=== PATIENT | male | born 1935 | race Caucasian/White ===

== ENCOUNTER 2019-06-15 13:51 | Emergency (ER) | payer MEDICARE ==
[~2019-06-15] VITALS: Ht 177.8 cm; Wt 88.4 kg
[2019-06-15 14:55] LABS: BASO # 0.1 x10^3/uL (0.0-0.2); BASO % 1 % (0-3); EOS # 0.1 x10^3/uL (0.0-0.7); EOS % 1 % (0-3); HEMATOCRIT 44.6 % (39.0-53.0); HEMOGLOBIN 14.4 g/dL (13.0-17.5); LYMPH # 0.8 x10^3/uL (1.0-4.8); LYMPH % 9 % (24-48); MEAN CORPUSCULAR HEMOGLOBIN 28 pg (25-35); MEAN CORPUSCULAR HGB CONC 32 g/dL (31-37); MEAN CORPUSCULAR VOLUME 85 fL (79-100); MONO # 0.5 x10^3/uL (0.0-1.1); MONO % 5 % (0-9); NEUT # 7.6 x10^3uL (1.8-7.7); NEUT % 84 % (31-73); PLATELET COUNT 227 x10^3/uL (140-400); RED BLOOD COUNT 5.26 x10^6/uL (4.30-5.70); RED CELL DISTRIBUTION WIDTH 14.2 % (11.5-14.5)
--- NOTE | 2019-06-15 15:16 | EKG ---
[address] [address] Test Date: 2019-06-15 Test Time: 14:37:44 Pat Name: HARDY GARLAND Department: Room: Gender: M [employer]: : [id number] Requested By: MAURO CORNEJO Order Number: [id number] Reading MD: Measurements Intervals [place] Rate: 51 P: -39 AR: 184 QRS: -24 QRSD: 120 T: -6 QT: 454 QTc: 420 Interpretive Statements SINUS RHYTHM LEFTWARD AXIS R-S TRANSITION ZONE IN V LEADS DISPLACED TO THE RIGHT RVH WITH REPOLARIZATION ABNORMALITY QRS(T) CONTOUR ABNORMALITY CONSISTENT WITH INFERIOR INFARCT AGE UNDETERMINED ABNORMAL ECG RI6.01 No previous ECG available for comparison
[2019-06-15] MEDS ORDERED: ASPIRIN 81 MG TAB.CHEW PO ONE (15:30)
--- NOTE | 2019-06-15 15:34 | PHYS DOC ---
Past History Past Medical History: Hypertension, Other Additional Past Medical Histor: low potassium Past Surgical History: Other Additional Past Surgical Histo: abd hernia repair Smoking: Non-smoker Additional Smoking Information: chews tobacco Alcohol Use: None Drug Use: None Adult General Chief Complaint Chief Complaint: ABNORMAL LABS HPI HPI Patient is an 84-year-old male with past medical history of hypertension and hypokalemia who presents to the emergency department for evaluation of palp itations. He states this afternoon he began to experience palpitations, diaphoresis, moderate chest discomfort that he likened to an elephant sitting on his chest as well as some fatigue and sensation of warmth. He denies radiation of the pain and nothing seemed to exacerbate or alleviate it. His daughter states that the patient told her he thought he was having heart attack. He st ates that he is only been taking one of his potassium tablets which is half of his prescribed dose. He states that he had been tolerating this reduction in his medication well, however, today at the onset of his symptoms he thought it might be related to his potassium and decided to take the additional dose. His symptoms seemed to francois after about 20-30 minutes. He does take a 81 mg aspirin daily. Currently he is asymptomatic he denies any recent illness, fever, chills, shortness of breath, cough, orthopnea. Review of Systems Review of Systems Constitutional: Denies fever or chills HENT: Denies nasal congestion or sore throat Respiratory: Denies cough or shortness of breath Cardiovascular: Reports chest pain, palpitations, diaphoresis GI: Denies abdominal pain, nausea, or vomiting : Denies dysuria or hematuria Neurologic: Reports fatigue. Denies headache, dizziness, focal weakness. Complete systems were reviewed and found to be within normal limits, except as documented in this note. Allergies Allergies Allergies Coded Allergies Type Severity Reaction Last Updated Verified No Known Drug Allergies 06/15/19 No Physical Exam Physical Exam Constitutional: Well developed, obese, no acute distress, non-toxic appearance HENT: Normocephalic, atraumatic, oropharynx moist Eyes: Conjunctiva normal, no discharge Cardiovascular: Heart rate normal, regular rhythm Lungs & Thorax: Bilateral breath sounds clear to auscultation, no wheezing, crackles or rales Abdomen: Soft, protuberant but not distended. No tenderness to palpation. Skin: Warm, dry, no erythema, no rash Extremities: Radial pulses +2/4 bilaterally, no edema or cyanosis Neurologic: Alert and oriented, normal motor function, gait normal, no focal de ficits noted Psychologic: Affect normal, judgment normal Current Patient Data Vital Signs Vital Signs Date Time Temp Pulse Resp B/P (MAP) Pulse Ox O2 Delivery O2 Flow Rate FiO2 06/15/19 14:55 54 19 134/69 (90) 93 Room Air 06/15/19 13:51 98.0 Lab Results Laboratory Tests Test 06/15/19 14:39 White Blood Count 9.0 x10^3/uL (4.0-11.0) Red Blood Count 5.26 x10^6/uL (4.30-5.70) Hemoglobin 14.4 g/dL (13.0-17.5) Hematocrit 44.6 % (39.0-53.0) Mean Corpuscular Volume 85 fL (79-100) Mean Corpuscular Hemoglobin 28 pg (25-35) Mean Corpuscular Hemoglobin Concent 32 g/dL (31-37) Red Cell Distribution Width 14.2 % (11.5-14.5) Platelet Count 227 x10^3/uL (140-400) Neutrophils (%) (Auto) 84 % (31-73) H Lymphocytes (%) (Auto) 9 % (24-48) L Monocytes (%) (Auto) 5 % (0-9) Eosinophils (%) (Auto) 1 % (0-3) Basophils (%) (Auto) 1 % (0-3) Neutrophils # (Auto) 7.6 x10^3uL (1.8-7.7) Lymphocytes # (Auto) 0.8 x10^3/uL (1.0-4.8) L Monocytes # (Auto) 0.5 x10^3/uL (0.0-1.1) Eosinophils # (Auto) 0.1 x10^3/uL (0.0-0.7) Basophils # (Auto) 0.1 x10^3/uL (0.0-0.2) Troponin I Quantitative 0.023 ng/mL (0-0.055) EKG EKG 0237: Sinus rhythm rate of 54. Prolonged QRS with possible right bundle-branch block morphology. No previous EKG for comparison. [] Radiology/Procedures Radiology/Procedures PROCEDURE: CHEST PA & LATERAL AP and Lateral Views of the Chest 06/15/2019 3:13 PM Indication: Chest pain Comparison: None Findings: Elevation of left hemidiaphragm noted. There is no focal consolidation or infiltrate identified. The cardiomediastinal silhouette is within normal limits. There is no evidence of pneumothorax or pleural effusion. No acute osseous abnormalities are identified. Impression: No evidence of acute cardiopulmonary process. Electronically signed by: Daniel Choudhary MD (06/15/2019 3:51 PM) [id number] Course & Med Decision Making Course & Med Decision Making Pertinent Labs and Imaging studies reviewed. (See chart for details) Patient is a 66-year-old man who presents to ED for evaluation of palpitations. He has no documented history of coronary artery disease, [place], or arrhythmias. He states that he has not been taking his potassium supplementation as directed. Although he is asymptomatic at this time, he states that earlier this afternoon he was experiencing palpitations, chest discomfort, diaphoresis and expressed concern to his daughter that he may be having a heart attack. Patient is clinically well with stable vital signs arrival to the emergency department. He took his daily 81 mg aspirin and we will administer an additional 3 baby aspirin here in the emergency department. Plan to obtain EKG, chest x-ray, troponin and basic labs. [] Dragon Disclaimer Dragon Disclaimer This electronic medical record was generated, in whole or in part, using a voice recognition dictation system. Departure Departure: Impression: Primary Impression: Chest pain Additional Impression: Left against medical advice Disposition: 07 AGAINST MEDICAL ADVICE Condition: GUARDED Referrals: DANITZA THACKER MD (PCP) Patient Instructions: Chest Pain (Nonspecific), [id number], Discharge Against Medical Advice HEART Score for Chest Pain PTs The HEART Score for CP Pts HEART Score for Chest Pain: HEART Score for Chest Pain Response (Comments) Value History Moderately Suspicious 1 ECG Nonspecific Repolarizatio 1 Age > 65 2 Risk Factors 1 or 2 Risk Factors 1 Troponin < Normal Limit 0 Total 5 Risk Factors: Risk Factors: DM, Current or recent (<one month) smoker, HTN, HLP, family history of CAD, obesity. Risk Scores: Score 0 - 3: 2.5% MACE over next 6 weeks - Discharge Home Score 4 - 6: 20.3% MACE over next 6 weeks - Admit for Clinical Observation Score 7 - 10: 72.7% MACE over next 6 weeks - Early Invasive Strategies Problem Qualifiers Primary Impression: Chest pain Chest pain type: unspecified Qualified Codes: R07.9 - Chest pain, unspecified MAURO CORNEJO DO Jun 15, 2019 15:34
[2019-06-15 15:38] LABS: CALCIUM 8.6 mg/dL (8.5-10.1); CREATININE 0.8 mg/dL (0.7-1.3); GFR 91.7; POTASSIUM 3.7 mmol/L (3.5-5.1)
[2019-06-15 15:46] VITALS: BP 160/92
[2019-06-15 15:52] LABS: ALBUMIN/GLOBULIN RATIO 0.8 (1.0-1.7); TOTAL BILIRUBIN 0.3 mg/dL (0.2-1.0); TOTAL PROTEIN 6.8 g/dL (6.4-8.2)
--- NOTE | 2019-06-15 15:54 | RAD ---
AP and Lateral Views of the Chest 06/15/2019 3:13 PM Indication: Chest pain Comparison: None Findings: Elevation of left hemidiaphragm noted. There is no focal consolidation or infiltrate identified. The cardiomediastinal silhouette is within normal limits. There is no evidence of pneumothorax or pleural effusion. No acute osseous abnormalities are identified. Impression: No evidence of acute cardiopulmonary process. Electronically signed by: Daniel Choudhary MD (06/15/2019 3:51 PM) [id number]
[2019-06-15 16:07] LABS: BILIRUBIN,URINE NEG (NEG); CLARITY,URINE CLEAR; COLOR,URINE YELLOW; GLUCOSE,URINE NEG (NEG); NITRITE,URINE NEG (NEG)
[2019-06-15 16:08] LABS: BACTERIA,URINE 0 /HPF (0-FEW); RBC,URINE 0 /HPF (0-2); SQUAMOUS EPITHELIAL CELL,UR OCC /LPF; WBC,URINE OCC /HPF (0-4)
== END 2019-06-15 16:58 | disposition left against medical advice (07) ==
LOC: ER 13:55
DX: R07.89 Other chest pain (principal); I10 Essential (primary) hypertension; F17.220 Nicotine dependence, chewing tobacco, uncomplicated
CPT/HCPCS: 36415; 71046; 80053; 81001; 82553; 83690; 83735; 84484; 85025; 85610; 85730; 93005; 99285